=== PATIENT | male | born 1970 | race Caucasian/White ===

== ENCOUNTER 2016-10-10 20:58 | Emergency (ER) | payer OTHER ==
[~2016-10-10] VITALS: Ht 175.3 cm; Wt 99.8 kg
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
[2016-10-10] MEDS ORDERED: fentaNYL INJECTION 100 MCG/2 ML AMP IVP ONE (21:15)
[2016-10-10] MEDS ORDERED: TETANUS,DIPTH,PERTUSS P/F (BOOSTRIX) 0.5 ML VIAL IM ONE (21:15)
[2016-10-10 21:16] LABS: BASOPHILS % (AUTO) 0 % (0-10); EOSINOPHILS # (AUTO) 0.2 10^3/uL (0.0-0.3); EOSINOPHILS % (AUTO) 2 % (0-10); LYMPHOCYTES # (AUTO) 3.5 X 10^3 (1.0-4.0); LYMPHOCYTES % (AUTO) 32 % (12-44); MEAN CORPUSCULAR HEMOGLOBIN 29 PG (25-34); MEAN CORPUSCULAR HGB CONC 35 G/DL (32-36); MEAN CORPUSCULAR VOLUME 83 FL (80-99); MEAN PLATELET VOLUME 10.1 FL (7.4-10.4); MONOCYTES # (AUTO) 0.9 X 10^3 (0.0-1.0); MONOCYTES % (AUTO) 8 % (0-12); NEUTROPHILS # (AUTO) 6.1 X 10^3 (1.8-7.8); NEUTROPHILS % (AUTO) 57 % (42-75); PLATELET COUNT 262 10^3/uL (130-400); RED CELL DISTRIBUTION WIDTH 13.8 % (10.0-14.5); WHITE BLOOD COUNT 10.7 10^3/uL (4.3-11.0)
[2016-10-10] MEDS ORDERED: NS 100 ML (IVPB) BAG IV ONE (21:45)
[2016-10-10] MEDS ORDERED: IOHEXOL 350 MG/ML 100 ML (OMNIPAQUE 350) VIAL IV ONE (21:45)
[2016-10-10] MEDS ORDERED: TETRACAINE 0.5% OPHTH SOLN 15 ML BTL OP ONE (22:00)
[2016-10-10] MEDS ORDERED: cefTRIAXone INJECTION 1,000 MG in NORMAL SALINE (BAXTER MINI) 50 ML IV ONE (22:00)
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
[2016-10-10] MEDS ORDERED: AMOX500C2 PO (23:10)
[2016-10-10] MEDS ORDERED: HYDR-757 PO (23:10)
[2016-10-10] MEDS ORDERED: DEXAMETHASONE PF 10 MG/ML (DECADRON) VIAL IV ONE (23:15)
[2016-10-10 23:32] VITALS: BP 173/114
== END 2016-10-10 23:32 | disposition home or self-care (01) ==
LOC: EDUNIT# 20:58 → ER 21:00
DX: S02.31XA Fracture of orbital floor, right side, initial encounter for closed fracture (principal); H57.8 Other specified disorders of eye and adnexa; H05.20 Unspecified exophthalmos; Z23 Encounter for immunization; Y04.0XXA Assault by unarmed brawl or fight, initial encounter; Y92.009 Unspecified place in unspecified non-institutional (private) residence as the place of occurrence of the external cause; Y99.8 Other external cause status
CPT/HCPCS: 36415; 70450; 70486; 71260; 72125; 74160; 85025; 90471; 90715; 96374; 96375

== ENCOUNTER 2017-07-05 20:08 | Outpatient (CLI) | payer OTHER ==
[~2017-07-05 20:08] MED LIST: AMOX500C2 PO; HYDR-757 PO
== END 2017-07-06 04:45 | disposition home or self-care (01) ==
LOC: SLEEP 20:08
PROVIDERS: ATTEND Nurse Practitioner Family
DX: G47.33 Obstructive sleep apnea (adult) (pediatric) (principal); R06.83 Snoring
CPT/HCPCS: 95810

== ENCOUNTER 2018-07-23 20:19 | Emergency (ER) | payer OTHER ==
[~2018-07-23] VITALS: Ht 175.3 cm; Wt 104.3 kg
[~2018-07-23 20:19] MED LIST changes: +HYDR-4226 PO; -HYDR-757 PO
[2018-07-23] MEDS ORDERED: RX-CEPHALEXIN (KEFLEX) 250 MG CAP PPK#4 PO STA (20:29)
[2018-07-23] MEDS ORDERED: CEPH-507 PO (20:33)
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
[2018-07-23 20:49] VITALS: BP 146/112
[2018-07-23] MEDS ORDERED: TRIAMCINOLONE 0.1% CR (KENALOG) 15 GM TUBE TOP SCH (21:00)
== END 2018-07-23 22:18 | disposition home or self-care (01) ==
LOC: EDUNIT# 20:19 → ER 20:20
DX: L98.9 Disorder of the skin and subcutaneous tissue, unspecified (principal)
CPT/HCPCS: 99283